=== PATIENT | female | born 1980 | race Caucasian/White ===

== ENCOUNTER → 2016-07-22 | Outpatient (CLI) | payer MEDICAID ==
--- NOTE | 2016-07-22 13:30 | US ---
Dear Dr. YOST I had the pleasure of seeing your patient, LILLI BALL, in Cardiology Clinic today. As yo u know, LILLI is a 36 year old woman with an intrauterine at approximately 26 weeks gest ation. We were asked to see her in consultation due to family history of congenital heart disease. S pecifically, her daughter had an atrial septal defect and required surgery to close the defect. This child had a different father than the present baby and that father had an ASD himself so presumably the child's heart defect was paternally inherited. The father of the present baby has a son who has a pacemaker (Lilli is not certain as to the etiology of the need for pacemaker in this child but th inks it may be some type of arrhythmogenic process- perhaps arrhythmic right ventricular dysplasia. Past Medical History: non-contributory Medications: none Family history: as above; her daughter from a previous partner had an atrial septal defect and the so n of the current father of the baby has a pacemaker. There is no other known family history of conge nital heart disease. Social History: She is lives with her partner and combined they have 8 children from [place] [facility] Echocardiogram: A complete 2D and Doppler echocardiogram was performed with good image quality. This reveals a four-chamber heart correctly oriented in the left chest. There is normal segmental cardiac anatomy. There is no evidence of chamber enlargement or hypertrophy. The aorta and pulmonary artery are renée ectly oriented. The mitral, tricuspid, aortic and pulmonic valves are visualized and are unremarkabl e by Doppler interrogation. The aortic arch and ductal arch are of normal caliber with normal flow p atterns across both the ductus arteriosus and aortic arch. Two superior pulmonary veins are seen ent ering the left atrium in normal fashion. There is a normal right to left flow pattern across the pat ent foramen ovale with the flap of the foramen ovale seen in the left atrium. The heart rate i s within normal limits for gestational age. There is normal atrioventricular mechanical synchrony wi th no dysrhythmia was noted throughout the duration of the study. There is no pericardial effusion. This study cannot rule out subtle atrial or ventricular septal defects. Impression: This is a normal echocardiogram for gestational age. I discussed these findings in detail with LILLI and attempted to answer her questions to the best o f my ability. We specifically discussed the limitations of echocardiography in diagnosing small septal defects, minor valve abnormalities, and problems that may present after the transition to steven life such as coarctation of the aorta. Despite these limitations, I have not scheduled her for any further follow-up in Cardiology [facility], however I would be more than happy to see her again at any time should any further concerns jn e. I have also not recommended any alteration to her pre or care. Should there be any con cerns regarding the cardiovascular system after the baby is born, we would be happy to re-evaluate th e at anytime. Thank you very much for allowing me to participate in LILLI 's care. Please do not hesitate to co ntact my office if I can be of any further assistance. My office number is [phone] or my cell p juan is [phone]. Sincerely yours, Tiana Montejo MD [employer]r of Pediatrics, Pediatric Cardiology [facility] Note: Greater than 50% of this visit was spent in direct [id number] contact and counseling. Total v isit length was 30 minutes.
== END ==
LOC: FIMAGING 12:35
PROVIDERS: ATTEND Obstetrics & Gynecology
DX: O09.522 Supervision of elderly multigravida, second trimester (principal); Z3A.26 26 weeks gestation of pregnancy; Z82.49 Family history of ischemic heart disease and other diseases of the circulatory system